=== PATIENT | female | born 1980 | race Caucasian/White ===

== ENCOUNTER 2024-05-21 12:11 | Emergency (ER) | payer BC, SELFPAY ==
[2024-05-21 12:12] VITALS: BP 174/98; PULSE 80; RESP 22; TEMP 36.8; O2SAT 100
--- NOTE | 2024-05-21 14:04 | ED.DIZZY ---
HPI - Dizziness General Chief Complaint: Dizziness Stated Complaint: dizzy, high BG Time Seen by Provider: 05/21/24 14:04 Source: patient Mode of arrival: ambulatory Limitations: no limitations History of Present Illness HPI Narrative: This is a 43-year-old female with PMH of T2 dm, HTN who presents to the ED for chief complaint of dizziness. She was seen at the PCP this morning and had a lab draw to check on her diabetes. States that they are working on adjusting blood pressure medications. She reports she became worried because her blood sugars tics have been in the 150s lately. States that she had some dizziness this afternoon but attributes this to anxiety. States that she lost her 3 years ago and is a single mom of 5 kids. States that recently the quit so it has been very difficult to take care for children. This has been causing a lot of stress and she feels her anxiety is causing a lot of her symptoms. States that she waited in the waiting room and sat down her symptoms have resolved. Denies chest pain, shortness of breath, numbness, weakness, cough, palpitations. Denies syncope Related Data Allergies Allergy/AdvReac Type Severity Reaction Status Date / Time ciprofloxacin Allergy Unknown RASH Unverified 10/03/22 14:36 Review of Systems Review of Systems: All systems as dictated in [facility] Social History Social History (System 10/03/22 @ 14:36 by Arcelia Greer) Smoking status: Never smoker Alcohol intake: never Exam Narrative: GENERAL: Well-appearing, well-nourished, and in no acute distress. HEAD: Normocephalic, atraumatic. EYES: PERRLA and EOMI. ENT: Nares clear, no rhinorrhea or epistaxis. Mucous membranes moist. Oropharynx without tonsillar hypertrophy exudate or other lesions. NECK: Supple. No adenopathy or masses. CHEST: No respiratory distress. Clear to auscultation. No wheezes rales or rhonchi HEART: Regular rate and rhythm. No murmur heard. Normal peripheral pulses. ABDOMEN: Soft, nontender, nondistended, normal active bowel sounds. MSK: Normal range of motion. No edema. SKIN: Warm, dry, no rash. NEURO: Alert and oriented x4. No focal deficits. PSYCH: Normal mood and affect. Course Vital Signs Vital signs: Vital Signs Temperature 98.3 F 05/21/24 12:12 Pulse Rate 80 05/21/24 12:12 Respiratory Rate 22 H 05/21/24 12:12 Blood Pressure 174/98 H 05/21/24 12:12 Pulse Oximetry 100 05/21/24 12:12 Oxygen Delivery Room Air 05/21/24 12:12 Temperature 98.3 F 05/21/24 12:12 Pulse Rate 80 05/21/24 12:12 Respiratory Rate 22 H 05/21/24 12:12 Blood Pressure 174/98 H 05/21/24 12:12 Pulse Oximetry 100 05/21/24 12:12 Oxygen Delivery Room Air 05/21/24 12:12 MDM - Dizziness MDM Narrative Medical decision making narrative: This is a 43-year-old female who presents to the ED for elevated blood pressures and dizziness earlier today. Currently undergoing workup with her PCP regarding diabetes and blood pressure. Vitals show slightly elevated blood pressure but otherwise normal. No evidence of emergent hypertension today. Patient is asymptomatic as I interview her. She attributes a lot of her symptoms today to anxiety. I offered EKG and further workup for the dizziness but patient states that she is feeling fine and ready to go home. Presentation most likely consistent with anxiety. Encouraged to continue her workup and management of chronic diseases with her PCP. Pt will be discharged in stable condition. Return precautions given and supportive measures discussed. Pt is understanding and agreeable with plan for discharge and follow-up with PCP. Discharge Plan Discharge Clinical Impression: Anxiety, Asymptomatic hypertension Patient Disposition: Home, Self-Care Condition: Stable Instructions: Antibiotic Form Additional Instructions: Your exam today is reassuring. Please follow-up closely with your PCP regarding bloo
== END 2024-05-21 14:30 | disposition home or self-care (01) ==
LOC: ANHED 14:21
PROVIDERS: Emergency Provider Physician Assistant; PCP Nurse Practitioner Family
DX: F41.9 Anxiety disorder, unspecified (principal); I10 Essential (primary) hypertension
CPT/HCPCS: 99283

== ENCOUNTER 2024-05-21 21:02 | Emergency (ER) | payer BC, SELFPAY ==
--- NOTE | ~2024-05-21 | CT_ITS ---
CT of the Abdomen and Pelvis: Indication: Abdominal pain Technique: 2.5 mm axial scans were obtained through the abdomen and pelvis following intravenous adm inistration of 100 cc of Omnipaque 350. Dose reduction technique was used on this scan by utilizing a utomated exposure control and iterative reconstruction technique. The dose-length product (DLP) was 7 14.61 mGy-cm. Findings: Scans through the lung bases are unremarkable. There is diffuse hepatic steatosis. The spleen, pancreas, gallbladder, and adrenal glands are within normal limits. There are small bilateral nonobstructing renal stones, largest measuring 5 mm in size. No evidence of aortic aneurysm. No lymphadenopathy. No bowel obstruction or bowel wall thickening. There is no evidence to suggest acute appendicitis. Images through the pelvis were performed. Urinary bladder is unremarkable. IUD in place. No adnexal m ass seen. No ascites. Impression: Bilateral nonobstructing nephrolithiasis, as detailed above. Diffuse hepatic steatosis. Reviewed, dictated and finalized at location . Impression: Bilateral nonobstructing nephrolithiasis, as detailed above. Diffuse hepatic steatosis.
[2024-05-21 21:09] VITALS: BP 138/78; PULSE 102; RESP 15; TEMP 36.6; O2SAT 100
[2024-05-21 21:18] LABS: Glucose Point of Care 128 mg/dl (65-105)
[2024-05-21 22:29] LABS: BEDSIDEPREGUCG Negative
[2024-05-21 22:36] LABS: Basophils Absolute Auto 0.1 K/mm3 (0.0-0.1); Basophils Percent Auto 0.4 % (0.2-1.2); Eosinophils Absolute Auto 0.1 K/mm3 (0-0.3); Eosinophils Percent Auto 0.4 % (0-4.4); Hematocrit 40.6 % (37.0-47.0); Hemoglobin 13.8 g/dL (12.0-15.0); Immature Granulocyte Absolute 0.09 K/mm3 (0.00-0.031); Immature Granulocyte Percent A 0.5 % (0-0.5); Lymphocytes Absolute Auto 3.47 K/mm3 (0.9-3.2); Lymphocytes Percent Auto 17.4 % (18.3-44.2); Mean Corpuscular Hemoglobin 30.7 pg (26-34); Mean Corpuscular Volume 90.2 fl (80-100); Monocytes Percent Auto 4.8 % (2.6-8.5); Neutrophils Absolute Auto 15.2 K/mm3 (1.3-6.7); Neutrophils Percent Auto 76.5 % (45.5-73.1); Platelet Count Result 407 k/mm3 (150-375); Red Cell Distribution Width 13.6 % (11.5-14.5); White Blood Count 19.9 K/mm3 (4.5-10.0)
[2024-05-21 22:58] LABS: Add Urine Microscopic? YES; Appearance Urine Cloudy (Clear); Bacteria Urine None Seen /hpf; Bilirubin Urine Negative (Negative); Blood Urine Negative (Negative); Color Urine Yellow (Yellow); Glucose Urine UA Negative (Negative); Ketones Urine Trace mg/dL (Negative); Leukocyte Esterase Ur Trace LEU/UL (Negative); Nitrate Urine Negative (Negative); Non Pathogenic Casts 0-2; Protein Urine Negative (Negative); Specific Grav Ur 1.021 (1.001-1.035); Squamous Epithelial Cell Urine None Seen /hpf (Few); Urobilinogen Urine 0.2 mg/dL (<2.0)
[2024-05-21 23:12] LABS: Alanine Aminotransferase 22 U/L (6-35); Albumin Level 4.7 g/dL (3.5-5.1); Alkaline Phosphatase 96 U/L (38-126); Anion Gap 11 mmol/L (4-12); Aspartate Amino Transferase 25 U/L (14-36); Bilirubin,Total 0.4 mg/dL (0.2-1.3); Blood Urea Nitrogen 16 mg/dL (7-17); Calcium 9.3 mg/dL (8.4-10.2); Carbon Dioxide 28 mmol/L (22-30); Chloride 101 mmol/L (98-107); Estimated CRCL calculation 101 ml/min; Estimated Glomerular Filt Rate > 60; Glucose 121 mg/dL (65-110); Lipase 88 U/L (23-300); Potassium 3.5 mmol/L (3.4-5.0); Sodium 140 mmol/L (137-145)
--- NOTE | 2024-05-22 00:05 | ECG_ITS ---
Test Date: 2024-05-22 00:05:59 Measurements Intervals Spicer Rate: 86 P: 52 DC: 144 QRS: 11 QRSD: 162 T: 104 QT: 431 QTc: 518 Interpretive Statements SINUS RHYTHM POSSIBLE LEFT ATRIAL ENLARGEMENT LEFT BUNDLE BRANCH BLOCK BASELINE ARTIFACT- I, III, AVR, AVL ABNORMAL ECG No previous ECG available for comparison Electronically Signed On 05-22-2024 08:09:00 CDT by Zeyad Hollingsworth D.O.
--- NOTE | 2024-05-22 00:13 | ED.GENADULT ---
HPI - General Adult General Chief complaint: Nausea/Vomiting/Diarrhea <Elizabeth Meyer APRN - Last Filed: 05/22/24 04:04> Stated complaint: vomiting <Elizabeth Meyer APRN - Last Filed: 05/22/24 04:04> Time Seen by Provider: 05/21/24 23:24 <Elizabeth Meyer APRN - Last Filed: 05/22/24 04:04> Source: patient <Elizabeth Meyer APRN - Last Filed: 05/22/24 04:04> Mode of arrival: ambulatory <Elizabeth Meyer APRN - Last Filed: 05/22/24 04:04> Limitations: no limitations <Elizabeth Meyer APRN - Last Filed: 05/22/24 04:04> History of Present Illness HPI narrative: Pt is a 43-year-old female who presents to the ER with complaints of dizziness, upper LQ abdominal pain, nausea, and vomiting. She reports her symptoms have been intermittently happening for the past couple months, but she endorses her nausea increased earlier today. Pt reports she has diabetes and her PCP put her on Trulicity several months ago. She reports he continues to increase her dose because it hasn't been working. Pt is wondering if her symptoms may be due to her recent increase in dosage. Pt denies chest pain, shortness of breath, or lower extremity pain. She reports she is in a clinical study has a vagal nerve stimulator to help treat her depression. <Elizabeth Meyer APRN - Last Filed: 05/22/24 04:04> Related Data Allergies/adverse reactions: Allergies Allergy/AdvReac Type Severity Reaction Status Date / Time ciprofloxacin Allergy Unknown RASH Verified 05/21/24 21:02 <Elizabeth Meyer APRN - Last Filed: 05/22/24 04:04> Review of Systems Review of Systems: All systems reviewed & are unremarkable except as noted in HPI and below <Elizabeth Meyer APRN - Last Filed: 05/22/24 04:04> [facility] Social History Social History: Social History Smoking status: Never smoker Alcohol intake: never <Elizabeth Meyer APRN - Last Filed: 05/22/24 04:04> Exam Narrative: GENERAL: Well appearing, well-nourished, non-toxic, in no acute distress. HEAD: Normocephalic, atraumatic. NECK: Supple. No adenopathy, no masses. RESPIRATORY: Airway patent, respirations nonlabored. Clear to auscultation bilaterally, no rales, rhonchi, wheezing. CARDIOVASCULAR: Regular rate and rhythm without murmurs, rubs, or gallops. Peripheral pulses 2+ and equal bilaterally. ABDOMINAL: Soft, tender in LUQ with palpation, nondistended, no hepatosplenomegaly. Normoactive BS. MUSCULOSKELETAL: Moves all extremities. Strength/ROM intact without gross deformities. SKIN: Warm, dry, normal color. No rashes. NEURO: A&O X3. Speech clear. Cranial nerves II-XII grossly intact. Steady gait. No ataxic movements. PSYCHIATRIC: Appropriate mood and affect. Normal interaction. <Elizabeth Meyer APRN - Last Filed: 05/22/24 04:04> Const: General: healthy appearing and alert <Elizabeth Meyer APRN - Last Filed: 05/22/24 04:04> Nutritional Appearance: well nourished <Elizabeth Meyer APRN - Last Filed: 05/22/24 04:04> Orientation/consciousness: patient oriented x3 <Elizabeth Meyer APRN - Last Filed: 05/22/24 04:04> Limitations: no limitations <Elizabeth Meyer APRN - Last Filed: 05/22/24 04:04> Course DIRECTOR ENERGY/PA Physician Supervision For this patient encounter, I reviewed the DIRECTOR ENERGY or PA documentation, treatment plan, and medical decision making; and I had [id number] time with this patient. Patient felt improved with treatment. Patient's CT scan showed no significant abnormalities. Patient was discharged home with Zofran and instructions to follow a clear liquid diet. Patient was also encouraged to return to the emergency department she had any worsening symptoms questions or concerns. <Luis Enrique Moralez MD - Last Filed: 05/22/24 06:27> Vital Signs Vital signs: Vital Signs Temperature 98 F 05/21/24 21:09 Pulse Rate 102 H 05/21/24 21:09 Re
[2024-05-22] MEDS: ONDANSETRON INJ 4 MG/2 ML VIAL IV PUSH (00:25)
[2024-05-22] MEDS: SODIUM CHLORIDE 0.9% IV 1,000 ML 999 ML IV CONT (00:25)
[2024-05-22 00:42] LABS: CRP 0.7 mg/dL (<1.0)
[2024-05-22 00:44] LABS: INR 1.1; Prothrombin Time 14.2 Seconds (11.1-14.7)
[2024-05-22 00:45] LABS: Lactic Acid Reflex 1.4 mmol/L (0.7-2.0)
[2024-05-22 01:00] VITALS: BP 120/67; PULSE 102; RESP 17; O2SAT 97
[2024-05-22] MEDS: MORPHINE SULFATE (*CRX) 2 MG/ML INJ IV PUSH (01:08)
[2024-05-22 01:10] LABS: Influenza A QL RT-PCR Negative (Negative); Influenza B QL RT-PCR Negative (Negative); RSV RNA, RT-PCR Negative (Negative); SARS-CoV-2 RNA PCR Negative (Negative)
[2024-05-22] MEDS: diphenhydrAMINE HCl INJ 50 MG/ML VIAL 25 MG IV PUSH (02:35)
[2024-05-22] MEDS: METOCLOPRAMIDE HCL INJ 10 MG/2 ML VIAL IV PUSH (02:35)
[2024-05-22 03:30] VITALS: BP 110/62; PULSE 110; RESP 17; O2SAT 98
[2024-05-22 05:22] VITALS: BP 108/59; PULSE 98; RESP 22; O2SAT 98
== END 2024-05-22 06:10 | disposition home or self-care (01) ==
PROVIDERS: Emergency Medicine; Emergency Provider Registered Nurse; PCP Nurse Practitioner Family
DX: R11.2 Nausea with vomiting, unspecified (principal); Z20.822 Contact with and (suspected) exposure to COVID-19
CPT/HCPCS: 36415; 74177; 80053; 81001; 81025; 82948; 83605; 83690; 85025; 85610; 85730; 86140; 87040; 87086; 87088; 87637; 93005; 96361; 96374; 96375; 99284; J1200; J2270; J2405; J2765; J7030; Q9967

== ENCOUNTER 2024-09-27 16:50 | Emergency (ER) | payer BC, SELFPAY ==
[2024-09-27 16:57] VITALS: BP 153/107; PULSE 95; RESP 20; TEMP 36.4; O2SAT 99
--- NOTE | 2024-09-27 19:56 | ED.GENADULT ---
HPI - General Adult General Chief complaint: Unspecified Stated complaint: withdrawal from Alprazolam Time Seen by Provider: 09/27/24 19:46 Source: patient Mode of arrival: ambulatory Limitations: no limitations History of Present Illness HPI narrative: This is a 43-year-old female that presents to the emergency department for medication refill. Reports she was recently admitted inpatient with a prolonged psychiatric stay. She got back home recently and is currently out of her alprazolam and desvenlafaxine. Reports she tried to make an appointment to see her PCP, but it is not until Saturday. Related Data Allergies Allergy/AdvReac Type Severity Reaction Status Date / Time ciprofloxacin Allergy Unknown RASH Verified 05/21/24 21:02 Review of Systems Review of Systems: PSYCHIATRIC: Reports anxiety and depression. All systems reviewed & are unremarkable except as noted in HPI and below PMFSH Past Medical History Medical History (Updated 09/27/24 @ 20:45 by Rhina Durbin PA-C) History of depression History of anxiety Social History Social History Smoking status: Never smoker Alcohol intake: never Exam Narrative: GENERAL: Well-appearing, well-nourished, and in no acute distress. HEAD: Normocephalic, atraumatic. EYES: EOMI. CHEST: Clear to auscultation. No respiratory distress. No wheezes rales or rhonchi HEART: Regular rate and rhythm. No murmur heard. Normal peripheral pulses. EXTREMITIES: Normal range of motion. No edema. SKIN: Warm, dry, no rash. NEURO: No focal deficits. Alert and oriented x3. PSYCH: Anxious Course Course Emergency Course: Patient agrees with plan of care Vital Signs Vital signs: Vital Signs Temperature 97.5 F L 09/27/24 16:57 Pulse Rate 95 09/27/24 16:57 Respiratory Rate 20 09/27/24 16:57 Blood Pressure 153/107 H 09/27/24 16:57 Pulse Oximetry 99 09/27/24 16:57 Oxygen Delivery Room Air 09/27/24 16:57 Temperature 97.5 F L 09/27/24 16:57 Pulse Rate 95 09/27/24 16:57 Respiratory Rate 20 09/27/24 16:57 Blood Pressure 153/107 H 09/27/24 16:57 Pulse Oximetry 99 09/27/24 16:57 Oxygen Delivery Room Air 09/27/24 16:57 Medical Decision Making MDM Narrative Medical decision making narrative: Patient presents to the emergency department for medication refill. Will be given short course of her alprazolam and desvenlafaxine until she is able to see her PCP. Reports she has an appointment on Saturday of this week Vital Signs Vital Signs: Vital Signs Temperature 97.5 F L 09/27/24 16:57 Pulse Rate 95 09/27/24 16:57 Respiratory Rate 20 09/27/24 16:57 Blood Pressure 153/107 H 09/27/24 16:57 Pulse Oximetry 99 09/27/24 16:57 Oxygen Delivery Room Air 09/27/24 16:57 Temperature 97.5 F L 09/27/24 16:57 Pulse Rate 95 09/27/24 16:57 Respiratory Rate 20 09/27/24 16:57 Blood Pressure 153/107 H 09/27/24 16:57 Pulse Oximetry 99 09/27/24 16:57 Oxygen Delivery Room Air 09/27/24 16:57 Critical Care Time Critical Care Time Critical Care Time: No Discharge Plan Discharge Clinical Impression: Anxiety, Medication refill Patient Disposition: Home, Self-Care Condition: Stable Instructions: Anxiety (ED), Medicine Refill (ED) Additional Instructions: Return to the emergency department if you experience fever, chest pain, shortness of breath, abdominal pain with nausea and vomiting, weakness, numbness, or any other symptoms that are concerning to you. Follow up with your primary care doctor for further management Patient Language: Slovenian Prescriptions: New alprazolam 0.5 mg tablet 0.5 mg PO TID PRN (Reason: anxiety) Qty: 14 0RF desvenlafaxine 50 mg tablet extended release 24 hr 50 mg PO DAILY 7 Days Qty: 7 0RF Follow-up/Referrals: Wylie,Donta Hicks APRN [Primary Care Provider] -
[2024-09-27] MEDS: ALPRAZolam (*CRX) 0.5 MG TABLET PO (20:14)
== END 2024-09-27 20:18 | disposition home or self-care (01) ==
LOC: ANHED 20:05
PROVIDERS: Emergency Provider Physician Assistant; PCP Nurse Practitioner Family
DX: Z76.0 Encounter for issue of repeat prescription (principal); F41.9 Anxiety disorder, unspecified
CPT/HCPCS: 99281; A9270